=== PATIENT | male | born 1945 | race Hispanic/Latino ===

== ENCOUNTER → 2016-06-13 | Outpatient (CLI) | payer OTHER, BC ==
[2010-05-27 22:03] VITALS: BP 156/114
[2016-06-13 07:21] LABS: BASOPHILS # (AUTO) 0.04 10*3/UL; BASOPHILS % (AUTO) 0.7 % (0-1); EOSINOPHILS # (AUTO) 0.16 10*3/UL; EOSINOPHILS % (AUTO) 2.8 % (0-8); HEMATOCRIT 46.2 % (42.0-52.0); MEAN CORPUSCULAR HEMOGLOBIN 33.5 PG (27-31); MEAN CORPUSCULAR HGB CONC 34.6 g/dL (33-37); MEAN PLATELET VOLUME 9.4 FL (7.4-12.2); MONOCYTES % (AUTO) 12.2 % (5-15); NEUTROPHILS # (AUTO) 2.43 10*3/UL; NEUTROPHILS % (AUTO) 42.3 % (50-80); RED BLOOD COUNT 4.78 10^6/uL (4.70-6.10)
[2016-06-13 07:23] LABS: PLATELET MORPHOLOGY COMMENT NORMAL MORPHOLOGY (NORM); RBC MORPHOLOGY COMMENT NORMAL MORPHOLOGY (NORM); WBC MORPHOLOGY COMMENT NORMAL MORPHOLOGY (NORM)
[2016-06-13 08:02] LABS: BUN/CREATININE RATIO 9.16 (6-20); CALCIUM 9.8 mg/dL (8.7-10.7); SERUM ALBUMIN 4.7 g/dL (3.5-4.8)
[2016-06-13 08:14] LABS: CHOL/HDL RATIO 3.13 RATIO (0-4.0); LDL CHOLESTEROL,CALCULATED 116.8 mg/dL
== END ==
LOC: LAB 07:03
PROVIDERS: ATTEND Internal Medicine
DX: E78.5 Hyperlipidemia, unspecified (principal); E03.9 Hypothyroidism, unspecified; G50.0 Trigeminal neuralgia; Z12.5 Encounter for screening for malignant neoplasm of prostate
CPT/HCPCS: 36415; 80053; 80061; 80156; 82550; 84443; 85025; G0103

== ENCOUNTER → 2016-06-16 | Outpatient (CLI) | payer OTHER, BC ==
[2010-05-27 22:03] VITALS: BP 156/114
== END ==
LOC: MMPC 11:11
PROVIDERS: ATTEND Internal Medicine
DX: G50.0 Trigeminal neuralgia (principal); E78.5 Hyperlipidemia, unspecified; Z79.899 Other long term (current) drug therapy
CPT/HCPCS: 99214; G0463